=== PATIENT | female | born 1940 | race Hispanic/Latino ===

== ENCOUNTER 2025-04-01 18:02 | Inpatient (IN) | payer MEDICARE ==
[~2025-04-01] VITALS: Ht 152.4 cm; Wt 70.3 kg
[2025-04-01] MEDS: METRONIDAZOLE 500MG/NS 100ML 100 ML IV ONE (18:53)
[2025-04-01] MEDS: AMLODIPINE BESYLATE 5 MG TAB PO ONE (19:00)
[2025-04-01] MEDS ORDERED: SODIUM CHLORIDE FLUSH 10 ML SYR INJ PRN (19:30)
[2025-04-01 19:56] VITALS: PULSE 67; RESP 18; TEMP 97.3
[2025-04-01 22:50] VITALS: BP 152/67; PULSE 60; RESP 16; TEMP 97.6; O2SAT 98
[2025-04-02] VITALS (7 sets, daily range): BP systolic 127–171; BP diastolic 47–57; PULSE 52–58; RESP 18; TEMP 97.5–98.7; O2SAT 100
[2025-04-02] MEDS ORDERED: ROSUVASTATIN-E1 EAC1 (00:06)
[2025-04-02] MEDS ORDERED: ASPIRIN81 MG PO (00:06)
[2025-04-02] MEDS ORDERED: CLOPIDOGREL75 MG PO (00:06)
[2025-04-02] MEDS: METRONIDAZOLE 500MG/NS 100ML 100 ML IV SCH (05:35)
[2025-04-02 06:47] LABS: BASOPHILS % 0.6 % (0.0-1.0); EOSINOPHILS % 5.2 % (0.0-6.0); LYMPHOCYTES % 24.7 % (18.0-39.1); MONOCYTES % 10.9 % (4.4-11.3); NEUTROPHILS % 58.0 % (38.7-80.0); RED CELL DISTRIBUTION WIDTH 13.2 % (11.7-14.4)
[2025-04-02 07:14] LABS: EST GLOMERULAR FILTRATION RATE 36.0 ML/MIN (>=60)
[2025-04-02] MEDS ORDERED: DEXTROSE 50% SYRINGE 50 ML IV PRN (07:45)
[2025-04-02] MEDS: INSULIN LISPRO 100 UNIT/1 ML 3ML VIAL SQ SCH (08:09)
[2025-04-02] MEDS ORDERED: INSULIN LISPRO 100 UNIT/1 ML 3ML VIAL SQ SCH (11:30)
[2025-04-02] MEDS ORDERED: POVIDONE IODINE 10% 120 ML BTL EXT PRN (13:00)
[2025-04-02] MEDS: INSULIN GLARGINE 100 UNITS/ML VIAL SQ SCH (13:34)
[2025-04-02] MEDS: AMLODIPINE BESYLATE 5 MG TAB PO SCH (13:44)
[2025-04-02] MEDS: LIDOCAINE 4% PATCH TP SCH (13:44)
[2025-04-02] MEDS: ACETAMINOPHEN 325 MG TAB PO PRN (13:44)
[2025-04-02] MEDS: Vancomycin IV 1 GM in SODIUM CHLORIDE 0.9% 250ML 250 ML IV ONE (16:56)
[2025-04-02] MEDS: DOXYCYCLINE HYCLATE TABLET 100 MG TAB PO SCH (16:58)
[2025-04-02] MEDS: ATORVASTATIN 20 MG TAB PO SCH (20:31)
[2025-04-03] VITALS (7 sets, daily range): BP systolic 108–164; BP diastolic 52–92; PULSE 53–91; RESP 16–20; TEMP 97.2–97.9; O2SAT 100
[2025-04-03 05:52] LABS: BASOPHILS % 0.7 % (0.0-1.0); EOSINOPHILS % 5.4 % (0.0-6.0); LYMPHOCYTES % 25.0 % (18.0-39.1); MONOCYTES % 10.1 % (4.4-11.3); NEUTROPHILS % 58.2 % (38.7-80.0); RED CELL DISTRIBUTION WIDTH 13.2 % (11.7-14.4)
[2025-04-03 06:12] LABS: EST GLOMERULAR FILTRATION RATE 44.0 ML/MIN (>=60)
[2025-04-03] MEDS: ENOXAPARIN 30 MG/0.3 ML SYR SC SCH (17:08)
[2025-04-04] VITALS (7 sets, daily range): BP systolic 107–154; BP diastolic 48–91; PULSE 56–70; RESP 16–18; TEMP 97.6–98.3; O2SAT 99–100
[2025-04-04 06:32] LABS: BASOPHILS % 0.7 % (0.0-1.0); EOSINOPHILS % 5.8 % (0.0-6.0); LYMPHOCYTES % 27.1 % (18.0-39.1); MONOCYTES % 10.2 % (4.4-11.3); NEUTROPHILS % 55.5 % (38.7-80.0); RED CELL DISTRIBUTION WIDTH 13.3 % (11.7-14.4)
[2025-04-04 07:10] LABS: EST GLOMERULAR FILTRATION RATE 53.0 ML/MIN (>=60)
[2025-04-04] MEDS: INSULIN GLARGINE 100 UNITS/ML VIAL SQ SCH (09:08)
[2025-04-05] VITALS (7 sets, daily range): BP systolic 127–156; BP diastolic 48–98; PULSE 61–89; RESP 17–20; TEMP 97.5–98.5; O2SAT 99–100
[2025-04-05 06:05] LABS: BASOPHILS % 1.2 % (0.0-1.0); EOSINOPHILS % 6.0 % (0.0-6.0); LYMPHOCYTES % 29.5 % (18.0-39.1); MONOCYTES % 10.5 % (4.4-11.3); NEUTROPHILS % 52.1 % (38.7-80.0); RED CELL DISTRIBUTION WIDTH 13.5 % (11.7-14.4); RETICULOCYTE % 2.6 % (0.8-2.2)
[2025-04-05 06:29] LABS: % IRON SATURATION 21.0 % (15-50); EST GLOMERULAR FILTRATION RATE 53.0 ML/MIN (>=60)
[2025-04-05] MEDS: AMLODIPINE BESYLATE 5 MG TAB PO SCH (08:27)
[2025-04-05] MEDS: INSULIN GLARGINE 100 UNITS/ML VIAL SQ SCH (08:42)
[2025-04-05] MEDS: ASCORBIC ACID 500 MG TAB PO SCH (09:21)
[2025-04-05] MEDS: CYANOCOBALAMIN INJ 1,000 MCG/ML VIAL IM ONE (09:21)
[2025-04-05] MEDS: FERROUS SULFATE 325 MG TAB PO SCH (09:21)
[2025-04-06] VITALS (9 sets, daily range): BP systolic 114–145; BP diastolic 52–63; PULSE 57–73; RESP 18–19; TEMP 97.3–98.6; O2SAT 100
[2025-04-06] MEDS: INSULIN GLARGINE 100 UNITS/ML VIAL SQ SCH (09:27)
[2025-04-06] MEDS: TRAMADOL HCL 50 MG TAB PO PRN (10:27)
[2025-04-07 00:44] VITALS: BP 122/48; PULSE 57; RESP 17; TEMP 98; O2SAT 99
[2025-04-07] MEDS ORDERED: Ferrous Sulfate PO (00:46)
[2025-04-07] MEDS ORDERED: BETADINE3780 ML EXT (00:46)
[2025-04-07] MEDS ORDERED: NORVASC5 MG PO (00:46)
[2025-04-07] MEDS ORDERED: DOXYCYCLINE HY100 MG PO (00:47)
[2025-04-07] MEDS ORDERED: Insulin Lispro SQ (00:48)
[2025-04-07] MEDS ORDERED: Insulin Glargine SQ (00:48)
[2025-04-07 08:00] VITALS: BP 122/48; PULSE 57; RESP 17; TEMP 98; O2SAT 99
[2025-04-07 08:47] VITALS: BP 140/48; PULSE 86; RESP 18; TEMP 97.5; O2SAT 97
[2025-04-07 16:21] VITALS: BP 139/90; PULSE 77; RESP 20; TEMP 98.6; O2SAT 100
[2025-04-07] MEDS ORDERED: SODIUM CHLORIDE 0.9% 100 ML ONE (19:37)
[2025-04-07] MEDS ORDERED: IOPAMIDOL 370 MG/ML 100 ML INFUS..BTL INJ ONE (19:37)
[2025-04-07 20:00] VITALS: BP 116/72; PULSE 70; RESP 18; TEMP 97.2; O2SAT 98
[2025-04-07 21:00] VITALS: BP 116/72; PULSE 70; RESP 18; TEMP 97.2; O2SAT 100
[2025-04-08 09:15] VITALS: BP 101/48; PULSE 72; RESP 20; TEMP 98.4; O2SAT 100
[2025-04-08 09:43] VITALS: BP 101/48; PULSE 72; RESP 20; TEMP 98.4; O2SAT 100
[2025-04-08 12:52] VITALS: BP 98/59; PULSE 70; RESP 18; TEMP 98.3; O2SAT 99
[2025-04-08 17:32] VITALS: BP 130/51; PULSE 69; RESP 18; TEMP 98; O2SAT 100
== END 2025-04-08 18:30 | disposition home or self-care (01) | DRG 603 ==
LOC: FSED 18:06 → ERHOLD 19:18 → MED/SURG2 22:44
PROVIDERS: ADMIT Internal Medicine; ATTEND Internal Medicine
DX: L03.032 Cellulitis of left toe (principal); I69.354 Hemiplegia and hemiparesis following cerebral infarction affecting left non-dominant side; N17.9 Acute kidney failure, unspecified; S92.402A Displaced unspecified fracture of left great toe, initial encounter for closed fracture; S92.505A Nondisplaced unspecified fracture of left lesser toe(s), initial encounter for closed fracture; E11.51 Type 2 diabetes mellitus with diabetic peripheral angiopathy without gangrene; D50.9 Iron deficiency anemia, unspecified; E11.22 Type 2 diabetes mellitus with diabetic chronic kidney disease; E11.65 Type 2 diabetes mellitus with hyperglycemia; I12.9 Hypertensive chronic kidney disease with stage 1 through stage 4 chronic kidney disease, or unspecified chronic kidney disease; S90.422A Blister (nonthermal), left great toe, initial encounter; E78.00 Pure hypercholesterolemia, unspecified; N18.30 Chronic kidney disease, stage 3 unspecified; F41.9 Anxiety disorder, unspecified; R00.1 Bradycardia, unspecified; Z79.4 Long term (current) use of insulin; T38.3X6A Underdosing of insulin and oral hypoglycemic [antidiabetic] drugs, initial encounter; T46.5X6A Underdosing of other antihypertensive drugs, initial encounter; W20.8XXA Other cause of strike by thrown, projected or falling object, initial encounter; Z91.128 Patient's intentional underdosing of medication regimen for other reason; Z95.818 Presence of other cardiac implants and grafts; Z90.710 Acquired absence of both cervix and uterus; Z82.49 Family history of ischemic heart disease and other diseases of the circulatory system; Z83.3 Family history of diabetes mellitus
CPT/HCPCS: 36415; 75635; 80048; 80053; 82607; 82728; 82746; 82948; 83036; 83540; 83735; 84466; 85025; 85045; 93306; 93925; 96372; 99252; 99285; J0696; J1650; J1815; J3373; J3420; J7050; Q9967